=== PATIENT | female | born 1995 | race American Indian/Alaskan Native ===

== ENCOUNTER 2022-01-11 11:10 | Emergency (ER) | payer SELFPAY ==
[2022-01-11] MEDS ORDERED: SODIUM CHLORIDE 0.9% 1000 ML 1,000 ML IV ONE (12:46)
[2022-01-11] MEDS ORDERED: diphenhydrAMINE 50 MG/ML VIAL IV ONE (12:46)
[2022-01-11] MEDS ORDERED: METOCLOPRAMIDE 10 MG/2 ML INJ IV PRN (12:46)
[2022-01-11] MEDS ORDERED: dexAMETHasone 4 MG/ML VIAL IV ONE (12:46)
[2022-01-11 13:39] LABS: Hematocrit 38.1 % (30.3-42.9); Hemoglobin 13.2 gm/dl (10.1-14.3); Mean Corpuscular HGB Conc 35 % (30-34); Mean Corpuscular Volume 82 fl (79-97); Platelet Count 200 K/mm3 (140-440); Red Blood Count 4.64 M/mm3 (3.65-5.03); Red Cell Distribution Width 13.2 % (13.2-15.2)
[2022-01-11 14:06] LABS: Alanine Aminotransferase 8 units/L (7-56); Albumin 4.3 g/dL (3.9-5); BUN/Creatinine Ratio 9; Blood Urea Nitrogen 7 mg/dL (7-17); Calcium 9.1 mg/dL (8.4-10.2); Hemolysis Index 7
--- NOTE | 2022-01-11 16:19 | Emergency Department Report ---
ED Headache HPI - General Chief Complaint: Headache Stated Complaint: FEEL SICK AND WEAK Time Seen by Provider: 01/11/22 12:37 - History of Present Illness Allergies/Adverse Reactions: Allergies No Known Allergies Allergy (Unverified 01/11/22 11:22) ED Review of Systems ROS: Stated complaint: FEEL SICK AND WEAK Other details as noted in HPI ED Past Medical Hx - Social History Smoking Status: Current Every Day Smoker Substance Use Type: None ED Physical Exam - General Limitations: No Limitations, Altered Mental Status ED Course Vital Signs 01/11/22 01/11/22 11:16 13:38 Temperature 98.9 F 99.4 F Pulse Rate 101 H 80 Respiratory 20 18 Rate Blood Pressure 118/78 Blood Pressure 124/87 118/78 [Right] O2 Sat by Pulse 98 98 Oximetry ED Medical Decision Making - Lab Data Result diagrams: 01/11/22 12:59 01/11/22 12:59 Critical care attestation.: If time is entered above; I have spent that time in minutes in the direct care of this critically ill patient, excluding procedure time. ED Disposition Clinical Impression: Weakness Headache Qualifiers: Headache type: unspecified Headache chronicity pattern: acute headache Intractability: not intractable Qualified Code(s): R51.9 - Headache, unspecified Disposition: 01 HOME / SELF CARE / HOMELESS Is pt being admited?: No Does the pt Need Aspirin: No Condition: Stable Instructions: Weakness, [id number], General Headache Without Cause, [id number] Additional Instructions: Increase intake of non caffienated fluids. Follow up with your primary care provider if no improvement or worsening symptoms. Return to ed as needed. Referrals: JACQUI LIND MD [Staff Physician] - 3-5 Days Forms: Work/School Release Form(ED) Time of Disposition: 16:19
[2022-01-11 17:32] VITALS: BP 128/72
== END 2022-01-11 17:31 | disposition home or self-care (01) ==
LOC: ED 11:10
DX: R53.1 Weakness (principal); R51.9 Headache, unspecified; F17.200 Nicotine dependence, unspecified, uncomplicated
CPT/HCPCS: 36415; 80053; 84703; 85027; 96361; 96374; 96375; 99283; J1100; J1200; J2765; J7030